=== PATIENT | male | born 1945 | race Caucasian/White ===

== ENCOUNTER 2017-05-15 06:18 | Inpatient (IN) ==
[2017-05-11 16:00] LABS: Appearance,Urine CLEAR; Bilirubin,Urine NEG (NEG); Color,Urine YELLOW; Glucose,Urine (UA) NEGATIVE (NEG); Leukocyte Esterase,Urine NEG /uL (NEG); Protein,Urine NEG (NEG); Specific Gravity,Urine 1.018 (1.000-1.035); Urine Blood NEG mg/dL (<0.03); Urobilinogen,Urine NEG (NEG)
[2017-05-11 16:43] LABS: Basophils # (Auto) 0.1 K/mcL (0.0-0.3); Basophils % (Auto) 0.7 % (0.0-2.0); Eosinophils # (Auto) 0.2 K/mcL (0.0-0.7); Eosinophils % (Auto) 2.3 % (0.0-7.0); Granulocytes % (Auto) 62.3 % (38.0-78.0); Lymphocytes # (Auto) 2.1 K/mcL (1.5-4.8); Lymphocytes % (Auto) 26.5 % (15.5-49.0); Mean Cell Volume 84.5 fL (80.0-100.0); Mean Corpuscular HGB Conc 34.3 g/dL (31.0-36.0); Monocytes # (Auto) 0.6 K/mcL (0.1-0.9); Monocytes % (Auto) 8.2 % (1.0-12.0); Platelet Count 252 K/mcL (140-440); RBC 5.06 M/mcL (4.50-5.90); Red Cell Distribution Width 12.5 % (11.5-14.5)
[2017-05-11 16:53] LABS: Blood Urea Nitrogen 15 mg/dl (8-23)
[~2017-05-15 06:18] MED LIST: ACETAMINOPHEN 500 MG TABLET PO SCH; CELECOXIB 200 MG CAPSULE PO SCH; PREGABALIN 75 MG CAPSULE PO SCH; ceFAZolin 1 GM VIAL IV SCH; oxyCODONE 10 MG TAB.ER.12H PO SCH
[2017-05-15] MEDS ORDERED: SUCCINYLCHOLINE 20 MG/ML ML IV ONE (09:00)
[2017-05-15] MEDS ORDERED: BUPIVACAINE PF 0.5% 30 ML VIAL IJ ONE (09:00)
[2017-05-15] MEDS ORDERED: fentaNYL 250 MCG/5 ML VIAL IV ONE (09:00)
[2017-05-15] MEDS ORDERED: TRANEXAMIC ACID 1,000 MG/10 ML VIAL IV ONE (09:00)
[2017-05-15] MEDS ORDERED: LIDOCAINE HCL/PF 100 MG/5 ML SYRINGE IV ONE (09:00)
[2017-05-15] MEDS ORDERED: ePHEDrine 50 MG/ML AMPUL IV ONE (09:00)
[2017-05-15] MEDS ORDERED: GLYCOPYRROLATE 0.2 MG/ML VIAL IV ONE (09:00)
[2017-05-15] MEDS ORDERED: PROPOFOL 200 MG/20 ML VIAL IV ONE (09:00)
[2017-05-15] MEDS ORDERED: MIDAZOLAM 5 MG/5 ML VIAL IV ONE (09:00)
[2017-05-15] MEDS ORDERED: GENTAMICIN SULFATE 800 MG/20 ML VIAL IR ONE (09:45)
[2017-05-15] MEDS ORDERED: METOPROLOL TARTRATE 5 MG/5 ML VIAL IV PRN (10:03)
[2017-05-15] MEDS ORDERED: IPRATROPIUM/ALBUTEROL 3 ML AMPUL.NEB NEB PRN (10:03)
[2017-05-15] MEDS ORDERED: diphenhydrAMINE 50 MG/ML VIAL IV PRN (10:03)
[2017-05-15] MEDS ORDERED: HYDROmorphone 2 MG/ML VIAL IV PRN ×2 (10:03→10:10)
[2017-05-15] MEDS ORDERED: PROMETHAZINE 25 MG/ML VIAL IV PRN (10:03)
[2017-05-15] MEDS ORDERED: NALOXONE HCL 0.4 MG/ML VIAL IV PRN (10:03)
[2017-05-15] MEDS ORDERED: ATROPINE SULFATE 0.4 MG/ML VIAL IV PRN (10:03)
[2017-05-15] MEDS ORDERED: ePHEDrine 50 MG/ML AMPUL IV PRN (10:03)
[2017-05-15] MEDS ORDERED: METHOCARBAMOL 1,000 MG/10 ML VIAL IV PRN (10:03)
[2017-05-15] MEDS ORDERED: ONDANSETRON 4 MG/2 ML VIAL IV PRN ×2 (10:03→10:10)
[2017-05-15] MEDS ORDERED: fentaNYL 100 MCG/2 ML VIAL IV PRN (10:03)
[2017-05-15] MEDS ORDERED: MEPERIDINE 25 MG/ML SYRINGE IV PRN (10:03)
[2017-05-15] MEDS ORDERED: FLUMAZENIL 0.1 MG/ML ML IV PRN (10:03)
[2017-05-15] MEDS ORDERED: TRANEXAMIC ACID 1,000 MG/10 ML VIAL IV SCH (10:10)
[2017-05-15] MEDS ORDERED: MAGNESIUM HYDROXIDE 30 ML ORAL.SUSP PO PRN (10:10)
[2017-05-15] MEDS ORDERED: ACETAMINOPHEN 325 MG TABLET PO PRN ×2 (10:10→10:26)
[2017-05-15] MEDS ORDERED: BENZOCAINE/MENTHOL 1 LOZENGE PO PRN (10:10)
[2017-05-15] MEDS ORDERED: FLEETS ADULT ENEMA PR PRN (10:10)
[2017-05-15] MEDS ORDERED: POLYETHYLENE GLYCOL 3350 17 GM PACKET PO PRN (10:10)
[2017-05-15] MEDS ORDERED: KETOROLAC 15 MG/ML VIAL IV PRN (10:10)
[2017-05-15] MEDS ORDERED: BISACODYL 10 MG SUPP.RECT PR PRN (10:10)
[2017-05-15] MEDS ORDERED: LACTATED RINGERS 1,000 ML IV SCH (10:15)
--- NOTE | 2017-05-15 10:30 | Brief Operative Note ---
Date of procedure: 05/15/17 Pre-op diagnosis: right shoulder rca and bicep tear Post-op diagnosis: same Procedure: right shoulder reverse tsa and bicep tenodesis Grafts/Implants: Yes Anesthesia: GETA Findings: severe djd Complications: none Surgeon: Umberto Stephen Rn Ostomy: Fermin Bruce Estimated blood loss (cc): 30 Tourniquet Time (Minutes): 0 Specimens Removed/Pathology: none sent Condition: stable Disposition: PACU
--- NOTE | 2017-05-15 11:52 | XRay Report ---
CLINICAL INFORMATION: Post-OP Total Shoulder COMPARISON: None. FINDINGS: Total shoulder prostheses is anatomically aligned. No osseous abnormality. Periarticular gas and soft tissue swelling seen - as expected IMPRESSION: Negative Interpreted and Authenticated by: Jose Elizabeth 05/15/17
[2017-05-15] MEDS: HYDROcodone/APAP 10/325MG TABLET PO PRN (13:05)
[2017-05-15] MEDS: 0.45 % SODIUM CHLORIDE 1,000 ML IV SCH ×2 (13:09→21:00)
[2017-05-15] MEDS: 0.9 % SODIUM CHLORIDE 10 ML SYRINGE IV SCH (15:00)
[2017-05-15] MEDS: ceFAZolin 1 GM VIAL IV SCH (18:09)
[2017-05-15] MEDS: OMEPRAZOLE 20 MG CAPSULE PO SCH ×2 (18:37→20:34)
[2017-05-15] MEDS ORDERED: SENNOSIDES 1 TABLET PO SCH (21:00)
[2017-05-15] MEDS ORDERED: TEMAZEPAM 15 MG CAPSULE PO PRN (21:00)
[2017-05-15] MEDS: DOCUSATE SODIUM 100 MG CAPSULE PO SCH (21:03)
[2017-05-16] MEDS: 0.9 % SODIUM CHLORIDE 10 ML SYRINGE IV SCH (01:10)
[2017-05-16] MEDS: ceFAZolin 1 GM VIAL IV SCH (01:10)
--- NOTE | 2017-05-16 07:36 | Orthopedic Progress Note ---
Subjective Patient information: Note initiated : 05/16/17 at 7:35 am Service Date, if different from initiated Date: [] Patient: Dagoberto Chung 71 y/o M admitted on 05/15/17 for Right Reverse Total Shoulder Arthroplasty and Poss. Chief Complaint: [Pt is stable this morning on post operative day 1 without any significant concerns or complaints. Patients vital signs have remained stable. Patients dressing is dry and is grossly instact from a neurovascular and motor standpoint. Patients 10 point ROS is otherwise negative. ] Objective Vital signs: Vital Signs Temp Pulse Resp BP Pulse Ox 05/16/17 07:12 98.7 F 73 16 118/66 96 05/16/17 04:00 98.8 F 73 16 122/67 94 05/16/17 00:00 98.2 F 71 16 106/67 93 05/15/17 20:00 97.9 F 89 16 137/79 92 05/15/17 14:55 97.6 F 18 121/73 95 05/15/17 13:49 125/75 95 05/15/17 13:19 139/81 93 05/15/17 12:48 132/85 94 05/15/17 12:20 69 134/78 94 05/15/17 12:05 81 120/69 94 05/15/17 12:00 96.8 F L 16 122/80 95 05/15/17 11:50 82 127/72 94 05/15/17 11:35 75 136/75 93 05/15/17 11:24 97.0 F 82 17 138/77 95 05/15/17 11:09 81 14 141/76 95 05/15/17 10:54 85 17 142/65 97 05/15/17 10:39 97.1 F 84 16 116/68 96 Intake and Output 05/15/17 05/16/17 05/16/17 21:59 05:59 13:59 Intake Total 180 / 180 1100 / 1100 Output Total 250 / 250 475 / 475 Balance -70 / -70 625 / 625 Intake: IV 1000 / 1000 Sodium Chloride 0.45% 1,000 ml 1000 / 1000 @ 100 mls/hr IV .Q10H JOVAN Rx#: [id number] Oral 180 / 180 100 / 100 Output: Void Amount 250 / 250 475 / 475 Other: # Voids 1 Weight 208 lb Intake & Output: Intake & Output 05/15/17 05/16/17 05/16/17 21:59 05:59 13:59 Intake Total 180 / 180 1100 / 1100 Output Total 250 / 250 475 / 475 Balance -70 / -70 625 / 625 Weight 208 lb Intake: IV 1000 / 1000 Sodium Chloride 0.45% 1,000 ml 1000 / 1000 @ 100 mls/hr IV .Q10H JOVAN Rx#: [id number] Oral 180 / 180 100 / 100 Output: Void Amount 250 / 250 475 / 475 Other: # Voids 1 Incision: Yes healing Incision clean and dry: Yes Dressing: Yes clean Weight bearing status: full Neurological exam IM: Yes motor sensory intact, Yes neurovascular intact Extremities exam IM: Yes Foot pink and warm, Yes neurovascular intact - Labs CBC & BMP: 05/11/17 13:28 05/11/17 13:28 Labs: Orthopedic Labs 05/11/17 13:28 PT 14.0 INR 1.1 APTT 35 05/11/17 13:28 Hgb 14.7 Hct 42.8 Assessment and Plan (1) Hx of total shoulder replacement The patient has been educated regarding dressing care, Physical Therapy recommendations, home exercises, restrictions, and follow up appointments. The patient has had all necessary DME prescribed. The patient has remained stable during their hospital course. The patient was discharge with a stable exam. Leave Dermabond patch intact until followup Status: Acute
--- NOTE | 2017-05-16 07:38 | Discharge Summary ---
Ortho Discharge - TSA - Patient Instructions Diet: Regular Diet Activity: activity as tolerated, weight bearing as tolerated Total Shoulder Protocol: Leave immobilizer in place except for bathing and ROM. Abduction pillow. Continue to wear sling until seen by physician. Codman Pendulum : These exercises use momentum produced by your body to move your shoulder joint. Bend your knees and shift your weight to your front leg, then back, allowing your arm to swing in the same directions. Using the same technique, alternately shift your weight between your right and left legs, allowing your arm to swing from side to side. These exercises are also performed in counterclockwise and clockwise circular motions. Typically these exercises are performed several times per day, for a set number repetitions or minutes, such as 20 times in a row or 5 minutes at a time. Dressing Care: May shower in 2 days Patient Education: Shoulder Arthroplasty (DC) - Problem Maintenance (1) Hx of total shoulder replacement Status: Acute - Follow Up Plan Follow Up Appointments: Fermin Bruce PA-C [Physician [employer]] - 05/30/17 8:50 am Disposition: Home, Self-Care Prognosis: Good Rehab Potential: Good I certify that the patient requires SNF services: No Overall status at discharge: patient is progressing back to baseline - Orders For Discharge Prescriptions: Docusate Sodium [Colace] 100 mg PO BID #60 cap HYDROcodone/APAP 10/325MG [Damon 10-325Mg] 1 - 2 tab PO Q4HP PRN #75 tab PRN Reason: Pain Level 3-6
--- NOTE | 2017-05-16 07:48 | Operative Note ---
DATE OF OPERATION: 05/15/2017 PREOPERATIVE DIAGNOSIS: Right shoulder rotator cuff arthropathy and biceps tendinopathy. POSTOPERATIVE DIAGNOSIS: Right shoulder rotator cuff arthropathy and biceps tendinopathy. PROCEDURE: Right reverse total shoulder and biceps tenodesis. SURGEON: Umberto Stephen MD NATURAL RESOURCES TECHNICIAN: Fermin Bruce PA-C ANESTHESIA: General endotracheal anesthesia. COMPLICATIONS: None. ESTIMATED BLOOD LOSS: About 50 mL. DESCRIPTION OF PROCEDURE: Patient was brought to the operating room and put to sleep with general anesthesia. Once asleep, the patient had the right shoulder sterilely prepped and draped in the usual sterile fashion. Once the timeout was performed and we confirmed this the operative site, tranexamic acid and preop antibiotics had been given, we then proceeded with a deltopectoral approach knowing the Ioban had been placed over the skin. We exposed the deltopectoral interval, which was retracted laterally. We then identified the anterior capsule which released the subscap and dislocated the humeral head. Once that was done, we identified the bicep tendon which was released. We performed a biceps tenodesis to the pectoralis major with #1 FiberWire stitch x2 [id number] stitches, roughened the bone as well. Once secured, we then made our neck cut using the [place] component guide with 30 degrees of retroversion. Once this was accomplished, we then placed a protective cap on the humerus and subluxed this posteriorly. We performed a 360 degree capsular release removing the biceps remnant of the labrum. We placed the pin fairly central and as inferior as we could, 10 degrees of inclination. We irrigated thoroughly and then reamed up to the size of 40. We implanted the metaglene with a central screw measuring 32. We measured three screws at 32 and all three 32 mm screws had excellent fixation. We placed a 40 mm glenosphere with 2 mm of offset. On the glenoid we did note that the bleeding bone extended senior living up the glenoid which will give good ingrowth. We irrigated thoroughly and then repaired the humerus. The humerus was broached up for a size 12 stem. We then trialed the size 12 with a standard thickness poly. This was too tight. We then countersunk the stem slightly trimming some of the bone anteriorly about 2-3 mm. This fit perfectly. We then used a cementless stem and a standard thickness poly which was tapped into place. This approximated the bone for stability. We irrigated thoroughly and reduced the humerus, took it through full range of motion and then we did not repair the subscap but we repaired the biceps tendon as noted. We irrigated thoroughly and the cephalic vein was bleeding. This was tied using a stitch for the vein to stop bleeding. We irrigated thoroughly, closed the fascial layer with 0 Vicryl and closed the skin with 2-0 Vicryl and adhesive closure superficially. Standard bandage and a DonJoy sling was given to the patient. RBH:ying Job ID: [id number] Doc ID: [id number] Umberto Stephen MD
[2017-05-16] MEDS ORDERED: MULTIVIT,THER IRON,CA,FA & MIN 1 TABLET PO SCH (09:00)
[2017-05-16] MEDS ORDERED: ASCORBIC ACID 500 MG TABLET PO SCH (09:00)
[2017-05-16] MEDS: HYDROcodone/APAP 10/325MG TABLET PO PRN (09:01)
[2017-05-16] MEDS: DOCUSATE SODIUM 100 MG CAPSULE PO SCH (09:01)
[2017-05-16] MEDS ORDERED: PNEUMOCOCCAL 23-VAL P-SAC VAC 0.5 ML VIAL IM ONE (10:00)
[2017-05-16] MEDS ORDERED: FLU VACC QS2017-18 36MOS UP/PF 60 MCG/0.5 ML SYRINGE IM ONE (10:00)
== END 2017-05-16 13:59 | disposition home or self-care (01) | DRG 483 ==
LOC: MEDSUR 06:18
PROVIDERS: ADMIT Orthopaedic Surgery; ATTEND Orthopaedic Surgery